=== PATIENT | female | born 1955 | race Caucasian/White ===

== ENCOUNTER → 2024-10-30 | Outpatient (CLI) | payer MEDICARE, OTHER ==
[2024-10-30 13:14] LABS: INR 0.9 (<1.2); Partial Thromboplastin Time 27.2 sec (22.0-30.0); Prothrombin Time 10.4 sec (10.0-12.5)
[2024-10-30 15:55] LABS: HCT 42.5 % (37.2-46.3); HGB 13.4 g/dL (12.0-15.0); Immature Platelet Fraction 19.2 % (1.1-6.1); MCHC 31.5 g/dL (32.0-37.0); NRBC Per 100 WBC 0 X 10*3/uL (0.00-0.01); Platelet Count 180 X 10*3/uL (140-440); RBC 4.62 X 10*6/uL (4.10-5.20); RBC Morphology Normal (Normal); RDW 13.8 % (11.5-14.5); WBC 14.13 X 10*3/uL (4.50-10.00)
[2024-10-30 19:10] LABS: ALT 14 U/L (8-44); AST 17 U/L (13-35); Albumin 4.1 g/dL (3.8-4.9); Albumin/Globulin Ratio 1.41 Ratio (1.60-3.17); Alkaline Phosphatase 81 U/L (41-126); BUN/Creat Ratio 18.82 Ratio (12.00-20.00); Blood Urea Nitrogen 20.7 mg/dL (9.0-27.0); Calcium 9.7 mg/dL (8.7-10.3); Carbon Dioxide 26.3 mmol/L (21.6-31.8); Chloride 105 mmol/L (96-109); Globulin 2.9 g/dL (1.6-3.3); Glucose 96 mg/dL (70-110); Potassium 4.9 mmol/L (3.5-5.5); Sodium 143 mmol/L (135-145); Total Bilirubin 0.5 mg/dL (0.3-1.2)
== END | disposition home or self-care (01) ==
LOC: LABPAT 11:43
PROVIDERS: ATTEND Orthopaedic Surgery
DX: Z01.818 Encounter for other preprocedural examination (principal); Z22.322 Carrier or suspected carrier of Methicillin resistant Staphylococcus aureus; M19.011 Primary osteoarthritis, right shoulder
CPT/HCPCS: 80053; 85027; 85610; 85730; 87070; 93005

== ENCOUNTER 2024-11-24 06:04 | Day surgery (SDC) | payer MEDICARE, OTHER ==
[2024-11-20 12:07] VITALS: BMI 44.9
[~2024-11-24 06:04] MED LIST: TRANEXAMIC 1,000 MG/100ML-NACL 1,000 MG in SALINE 1 100ML.BAG IVPB PRN
[2024-11-24 07:54] LABS: Glucose,Whole Blood 85 mg/dL (70-110)
[2024-11-24] MEDS: LACTATED RINGERS 1,000 ML IV SCH (07:58)
[2024-11-24] MEDS: IV FLUID CONTINUATION 1,000 ML IV ONE ×2 (07:58→11:19)
[2024-11-24] MEDS: GABAPENTIN 300 MG CAP PO PRN (08:02)
[2024-11-24] MEDS: MELOXICAM 7.5 MG TAB PO PRN (08:02)
[2024-11-24] MEDS: ACETAMINOPHEN TAB 500 MG TAB PO PRN (08:02)
[2024-11-24] MEDS: MIDAZOLAM 2 MG/2 ML VIAL IV PRN (08:04)
[2024-11-24] MEDS: DEXAMETHASONE SOD PHOSPHATE 4 MG/ML 1 ML VIAL IV ONE (08:06)
[2024-11-24] MEDS: ONDANSETRON 4 MG/2 ML VIAL IVP ONE (08:06)
[2024-11-24] MEDS: fentaNYL (PF) 50 MCG/ML 2 ML AMP IV PRN (08:14)
--- NOTE | 2024-11-24 08:19 | P.ANPRN ---
Procedure Note - Anesthesia - Nerve Block Performed Right Interscalene Single Time Out Performed: Yes Date of Procedure: 11/24/24 Procedure Start Time: : Procedure Stop Time: : Location of Patient: PreOp Indication: Acute Post-Operative Pain, Analgesia, Requested by Surgeon Sedation Type: Sedate with meaningful contact maintained Preparation: Sterile Prep Position: Sitting Catheter: None Needle Types: Pajunk Needle Gauge: 21 Ultrasound used to visualize needle placement: Yes Ultrasound used to observe medication spread: Yes Injectate: 0.5% Ropivacaine (see comment for volume) ([id number]. Negative stimulation @0.5MA) Blood Aspirated: No Pain Paresthesia on Injection Noted: No Resistance on Injection: Normal Image Stored and Saved: Yes Events: Uneventful and Well Tolerated
[2024-11-24] MEDS ORDERED: HYDROcodone/APAP 5-325MG 1 EACH TAB PO PRN ×2 (08:50)
[2024-11-24] MEDS ORDERED: SENNOSIDES-DOCUSATE SODIUM 1 EACH TAB PO PRN (08:50)
[2024-11-24] MEDS ORDERED: HYDROmorphone 0.5 MG/0.5 ML SYRINGE IVP PRN ×3 (08:50)
[2024-11-24] MEDS ORDERED: PHENYLEPHRINE-0.9% NACL SYG 1,000 MCG/10 ML SYRINGE ONE (09:02)
[2024-11-24] MEDS ORDERED: DEXAMETHASONE SOD PHOSPHATE 4 MG/ML 1 ML VIAL ONE (09:02)
[2024-11-24] MEDS ORDERED: LIDOCAINE 1% INJ 10MG/ML (20 ML MDV) ONE (09:02)
[2024-11-24] MEDS ORDERED: PROPOFOL 10 MG/ML 20 ML VIAL IV ONE (09:02)
[2024-11-24] MEDS ORDERED: SUCCINYLCHOLINE CHLORIDE 200 MG/10 ML VIAL IV ONE (09:02)
[2024-11-24] MEDS ORDERED: TRANEXAMIC 1,000 MG/100ML-NACL PREMIX BAG ONE (09:02)
[2024-11-24] MEDS ORDERED: PHENYLEPHRINE 10 MG/ML VIAL ONE (09:02)
[2024-11-24] MEDS ORDERED: fentaNYL (PF) 50 MCG/ML 2 ML AMP ONE (09:02)
[2024-11-24] MEDS ORDERED: ROPIVACAINE 5 MG/ML 30 ML VIAL ONE (09:02)
[2024-11-24] MEDS: ceFAZolin 2 GM in DEXTROSE 5% IN WATER 50 ML IVPB PRN (09:07)
[2024-11-24] MEDS: ceFAZolin 1,000 MG in SODIUM CHLORIDE 0.9% 1,000 ML IRRIGATION ONE (09:36)
--- NOTE | 2024-11-24 10:13 | P.OP ---
Date of Procedure: 11/24/24 Preoperative Diagnosis: Glenohumeral osteoarthritis right shoulder Postoperative Diagnosis: Glenohumeral osteoarthritis right shoulder Procedure(s) Performed: Right shoulder hemiarthroplasty Implants: Biomet May Stemless Shoulder 36 mm Biomet Standard Taper Adapter Biomet Modular Head - Variable Offset 46 mm, 21 mm, 50 mm Anesthesia: KAREN Surgeon: Farhad Lawrence Product Development Coordinator #1: Josselyn Sanz Estimated Blood Loss (ml): 30 Pathology: none sent Condition: stable Disposition: PACU Indications for Procedure: This is a patient that presented to my office with severe pain in the shoulder. X-rays demonstrated severe osteoarthritis of the glenohumeral joint of her shoulder. After failure of conservative treatment, we discussed the surgical and nonsurgical treatment options at length. The patient wishes to proceed with a hemiarthroplasty of the right shoulder. Patient is aware of the complications of the procedure which include but are not limited to infection, hardware failure, persistent pain, dislocation, and nerve injury. Informed consent was obtained. Operative Findings: The operative findings are consistent with severe osteoarthritis of the right glenohumeral joint Description of Procedure: The patient was seen in the preoperative area, consent was reviewed, and operative site was marked with a skin marker. Patient was then brought to the operating room and given preoperative antibiotics intravenously. Patient was also given 1 g of Tranexamic acid intravenously. A general anesthetic was administered by the anesthesia department. A Morrissey catheter was placed by the nursing staff. The patient was then placed in a beachchair position with the bony prominences well-padded and the head secured. The shoulder was then prepped and draped in the usual sterile fashion. A universal timeout was then performed, which confirmed the patient's name, surgical site, ALLERGIES, and consent. A standard deltopectoral approach was performed. The skin and subcutaneous tissue was sharply dissected down to the deltoid fascia. The cephalic vein was then identified and retracted medially. The deltopectoral interval was then utilized to expose the subscapularis tendon. A retractor was then placed under the coracobrachialis tendon retracted medially, and the deltoid. The axillary nerve is palpated and protected throughout the procedure. The subscapularis tendon was then released and retracted medially. The humeral head was then exposed easily. After the humeral head was exposed, osteophytes were removed with a Ronguer. Next the humerus was prepared. the drill guide was placed over the humeral head and a guidewire was inserted centrally humeral head. Next, using a saw, the proximal humerus was osteotomized. Next, the appropriate drill and reamer was used to prepare the proximal humerus. After full preparation of the proximal humerus, the implant was impacted in the shoulder was then reduced. The shoulder was taken through range of motion and found to be stable. Shoulder was then irrigated with pulsatile lavage. The shoulder was then irrigated with Irrisept solution. A second dose of 1 g of Tranexamic acid was given. The subscapularis was then repaired with #1 Vicryl. The deltopectoral interval was then closed with #1 Vicryl as well. The subcutaneous tissues were closed with 3-0 Vicryl followed by 3-0 Monocryl. Exofin glue was placed on the skin. A sterile dressing was then applied, the patient was transported to the recovery room in an arm sling in stable condition. The certified ophthalmic surgical assistant YADIRA Pineda was required due the complexity of surgery and the need for a skilled director medical surgical.
--- NOTE | 2024-11-24 10:56 | XR ---
EXAMINATION TYPE: XR shoulder limited RT DATE OF EXAM: 11/24/2024 10:51 AM COMPARISON: None. CLINICAL INDICATION: Female, 69 years old with history of postop, pain TECHNIQUE: AP view(s) obtained. FINDINGS: There is placement of a prosthetic humeral head. This articulates with the glenoid. Acromioclavicular joint degenerative hypertrophy. No acute fractures are evident. IMPRESSION: 1. No acute fracture post humeral head prosthesis placement. [facility], , 11/24/2024 10:53 AM
[2024-11-24] MEDS: IPRATROPIUM-ALBUTEROL 3 ML NEB INHALATION PRN (11:02)
[2024-11-24] MEDS: SODIUM CHLORIDE 0.9% 1,000 ML IV SCH (11:20)
[2024-11-24] MEDS: ONDANSETRON 4 MG/2 ML VIAL IVP PRN (12:04)
--- NOTE | 2024-11-24 15:39 | P.CONS ---
History of Present Illness - Reason for Consult Consult date: 11/24/24 - History of Present Illness Patient is a 69-year-old female with past medical history of CKD 3 A glenohumeral osteoarthritis of the right shoulder who presented for elective right shoulder hemiarthroplasty that was performed on with EBL of 30 cc, tolerated procedure well with no immediate postop complications. Hospitalist service consulted for medical management. Vital signs postoperatively showed normal body temperature, heart rate in the 80s, BP normotensive 115/72, satting at 94% on 2 L nasal cannula. Pertinent positives and negatives as discussed in HPI, a complete review of systems was performed and all other systems are negative. Lab work from 10/30 reviewed showed leukocytosis 13.3, normal hemoglobin and platelet count, unremarkable coagulation panel, GFR 54, normal sodium, potassium, bicarb, creatinine Patient seen and examined at bedside. No pain, ambulated after surgery, states the plan is to d/c 11/25 Vital signs reviewed General: nontoxic, no distress, appears at stated age Derm: warm, dry Head: atraumatic, normocephalic, symmetric Eyes: EOMI, no lid lag, anicteric sclera, pupils equal round reactive to light ENT: Nose and ears atraumatic Neck: No thyromegaly, supple Mouth: no lip lesion, mucus membranes moist Cardiovascular: S1S2 reg, no murmur, no edema Lungs: clear to auscultation bilateral, no rhonchi, no rales, no wheeze, no accessory muscle use Abdominal: soft, nontender to palpation, no guarding, no appreciable organomegaly Ext: no gross muscle atrophy, right shoulder postop dressing clean and dry Neuro: CN II-XII grossly intact Psych: Alert, oriented, appropriate affect Assessment/Plan: CKD 3 A -BMP ordered for a.m. -Agree with IV fluids with normal saline 70 cc/h -patient was notified on her CKD, she was not aware of it, she will follow up with her PCP,, recommended to avoid NSAIDs Morbid Obesity BMI 48 -recommend structured weight loss program, discuss with PCP Status post right shoulder hemiarthroplasty -Your postop management, VTE prophylaxis, pain management Past Medical History Additional Past Medical History / Comment(s): BACK PAIN. LIMITED RT ARM MOVEMENT History of Any Multi-Drug Resistant Organisms: None Reported Past Surgical History: Appendectomy, Section, Cholecystectomy, Hysterectomy, Orthopedic Surgery, Tonsillectomy Additional Past Surgical History / Comment(s): C-SEC X 4. BILAT CTR. RT INDEX FINGER SX. PLASTIC SX ON NOSE Past Anesthesia/Blood Transfusion Reactions: No Reported Reaction Smoking Status: Former smoker - Past Family History Mother Family Medical History: No Reported History Medications and Allergies Home Medications Medication Instructions Recorded Confirmed Type HYDROcodone/APAP 5-325MG [[place] 1 - 2 tab PO Q6HR PRN #32 tab 11/24/24 Rx 5-325] Sennosides [Senokot] 2 tab PO DAILY PRN #60 tablet 11/24/24 Rx Allergies Allergy/AdvReac Type Severity Reaction Status Date / Time bee venom protein (honey bee) Allergy Rash/Hives Verified 11/24/24 07:44 Milk Containing Products AdvReac Nausea & Verified 11/24/24 07:44 (Dairy) Vomiting [Dairy] morphine AdvReac Rash/Hives Verified 11/24/24 07:44 METAL Allergy Rash/Hives Uncoded 11/24/24 07:44 Physical Exam Vitals: Vital Signs Temp Pulse Pulse Resp BP BP Pulse Ox 11/24/24 14:00 82 16 118/63 94 L 11/24/24 13:30 86 16 115/72 94 L 11/24/24 13:00 87 16 111/73 95 11/24/24 12:30 89 16 123/62 93 L 11/24/24 12:05 94 16 142/84 93 L 11/24/24 11:50 86 16 141/67 94 L 11/24/24 11:25 81 18 145/72 94 L 11/24/24 11:03 80 18 137/68 92 L 11/24/24 10:48 84 16 159/79 91 L 11/24/24 10:33 97.2 F L 88 14 164/78 95 11/24/24 08:18 72 15 136/69 93 L 11/24/24 07:37 97.7 F 82 18 160/65 95 Intake and Output 11/23/24 11/24/24 11/24/24 22:59 06:59 14:59 Intake Total 1526 Output Total 30 Balance 1496 Intake: IV 1526 Output: Estimated Blood Loss 30 Other: Weight 111.7 kg
[2024-11-24] MEDS: ceFAZolin 2 GM in DEXTROSE 5% IN WATER 50 ML IVPB SCH (17:37)
[2024-11-24 19:33] VITALS: RESP 17
[2024-11-25] MEDS: ceFAZolin 2 GM in DEXTROSE 5% IN WATER 50 ML IVPB SCH (07:53)
[2024-11-25 08:29] VITALS: BP 172/74; PULSE 69; TEMP 97.8
[2024-11-25 08:53] LABS: Blood Urea Nitrogen 17.1 mg/dL (9.0-27.0); Calcium 8.6 mg/dL (8.7-10.3); Carbon Dioxide 22.9 mmol/L (21.6-31.8); Chloride 108 mmol/L (96-109); Glucose 107 mg/dL (70-110); Potassium 4.9 mmol/L (3.5-5.5); Sodium 142 mmol/L (135-145)
--- NOTE | 2024-11-25 09:25 | P.DS ---
Providers Expected date of discharge: 11/25/24 Attending physician: Farhad Lawrence Consults: 11/24/24 08:50 Consult Physician Routine Consulting Provider: Elliot Arvizu Consult Reason/Comments: medical management Do you want consulting provider notified?: Yes Primary care physician: Catarina Cardona - Discharge Diagnosis(es) (1) S/P shoulder hemiarthroplasty Current Visit: Yes Status: Acute (2) Osteoarthritis of right shoulder Current Visit: Yes Status: Acute Hospital Course: This is a 69-year-old female with known history of degenerative arthritis of the right shoulder. The patient presented for evaluation as an outpatient. After discussion and consideration patient elects to proceed with right shoulder hemiarthroplasty. The patient is seen preoperatively by Dr. Lawrence and medically cleared for surgery by their primary care physician. Patient is admitted to [facility] on 11/24/2024 for right shoulder hemiarthroplasty. The procedure is performed without complication or sequelae. The patient is doing well postoperatively. Labs and vital signs are stable on day of discharge. On day of discharge the patient's shoulder incision is healing well. There is minimal erythema. There is no drainage noted at this time. There is minimal soft tissue swelling to the shoulder. Patient has full hand and wrist motion without difficulty or pain. Neurovascular status to the right upper extremity is intact. Patient is discharged home in good condition. Please see med rec for accurate list of home medications. Plan - Discharge Summary Discharge Rx Participant: Yes New Discharge Prescriptions: New Sennosides [Senokot] 2 tab PO DAILY PRN #60 tablet PRN Reason: Constipation HYDROcodone/APAP 5-325MG [[place] 5-325] 1 - 2 tab PO Q6HR PRN #32 tab PRN Reason: Pain Discharge Medication List HYDROcodone/APAP 5-325MG [[place] 5-325] 1 - 2 tab PO Q6HR PRN #32 tab 11/24/24 [Rx] Sennosides [Senokot] 2 tab PO DAILY PRN #60 tablet 11/24/24 [Rx] Follow up Appointment(s)/Referral(s): Farhad Lawrence DO [Doctor of Osteopathic Medicine] - 2 Weeks Activity/Diet/Wound Care/Special Instructions: Maintain sling for comfort. Dressing may be removed by home care nurse or by patient in 7 days. Then change dressing twice daily until follow up. May shower with initial dressing intact and after removal. If dressing become saturated, please remove. Please follow-up with [facility] and call with any questions or concerns, . Discharge Disposition: HOME SELF-CARE
--- NOTE | 2024-11-25 10:59 | P.PN ---
Subjective Progress Note Date: 11/25/24 Patient is a 69-year-old female with past medical history of CKD 3 A glenohumeral osteoarthritis of the right shoulder who presented for elective right shoulder hemiarthroplasty that was performed on with EBL of 30 cc, tolerated procedure well with no immediate postop complications. Hospitalist service consulted for medical management. Patient seen and examined at bedside. No pain, ready for discharge, medically cleared on 11/25 Vital signs reviewed General: nontoxic, no distress, appears at stated age Derm: warm, dry Head: atraumatic, normocephalic, symmetric Eyes: EOMI, no lid lag, anicteric sclera, pupils equal round reactive to light ENT: Nose and ears atraumatic Neck: No thyromegaly, supple Mouth: no lip lesion, mucus membranes moist Cardiovascular: S1S2 reg, no murmur, no edema Lungs: clear to auscultation bilateral, no rhonchi, no rales, no wheeze, no accessory muscle use Abdominal: soft, nontender to palpation, no guarding, no appreciable organomegaly Ext: no gross muscle atrophy, right shoulder postop dressing clean and dry Neuro: CN II-XII grossly intact Psych: Alert, oriented, appropriate affect Assessment/Plan: CKD 3 A Creatinine 1.0, GFR 61 -patient was notified on her CKD, she was not aware of it, she will follow up with her PCP,, recommended to avoid NSAIDs -Stable kidney function, stable for discharge from medical standpoint, follow-up with PCP Morbid Obesity BMI 48 -recommend structured weight loss program, discuss with PCP Status post right shoulder hemiarthroplasty -Your postop management, VTE prophylaxis, pain management Objective - Vital Signs Vital signs: Vital Signs Temp 97.8 F 11/25/24 07:17 Pulse 69 11/25/24 07:17 Resp 17 11/25/24 07:17 BP 172/74 11/25/24 07:17 Pulse Ox 95 11/25/24 08:51 FiO2 Intake & Output 11/24/24 11/25/24 11/25/24 18:59 06:59 18:59 Intake Total 1526 Output Total 30 Balance 1496 Weight 111.7 kg Intake: IV 1526 Output: Estimated Blood Loss 30 Other: Voiding Method Toilet # Voids 2 3 - Labs CBC & Chem 7: 11/25/24 03:30 Labs: Abnormal Lab Results - Last 24 Hours (Table) 11/25/24 Range/Units 03:30 Calcium 8.6 L (8.7-10.3) mg/dL
[2024-11-25] MEDS ORDERED: Acetaminophen-Codeine 300-30mg TAB PO PRN ×2 (11:07)
== END 2024-11-25 14:36 | disposition home or self-care (01) ==
LOC: OR 06:04 → 4SSUR 10:27 → OR 11-25 14:36
PROVIDERS: ATTEND Orthopaedic Surgery
DX: M19.011 Primary osteoarthritis, right shoulder (principal); N18.31 Chronic kidney disease, stage 3a; E66.01 Morbid (severe) obesity due to excess calories; Z68.42 Body mass index [BMI] 45.0-49.9, adult; Z90.710 Acquired absence of both cervix and uterus; Z90.49 Acquired absence of other specified parts of digestive tract; Z01.818 Encounter for other preprocedural examination; Z87.891 Personal history of nicotine dependence; Z91.030 Bee allergy status; Z88.5 Allergy status to narcotic agent; Z79.899 Other long term (current) drug therapy
CPT/HCPCS: 94760; 64415; 80048; 73020; 23412; C1776; J2250; J1100; J0690 ×3; J2405; J3010

== ENCOUNTER 2025-01-29 11:57 | Emergency (ER) | payer MEDICARE, OTHER ==
--- NOTE | 2025-01-29 12:39 | ED ---
SOB HPI - General Source: patient, EMS, RN notes reviewed, old records reviewed Mode of arrival: EMS Limitations: no limitations <Krista Obrien - Last Filed: 01/29/25 15:25> <Haroon Morales - Last Filed: 01/29/25 21:39> - General Stated Complaint: SOB - History of Present Illness Initial Comments: 69-year-old female presents with complaints of shortness of breath and wheezing for the last day. States yesterday in the afternoon she left her windows open and they were mowing the grass outside and she started to get short of breath and have some wheezing. Reports she checked take a Benadryl but this did not help her symptoms, she thought that this was potentially her allergies. 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 States the symptoms of shortness of breath and wheezing continued throughout the night into today and she decided to call her granddaughter who suggested that she go to the emergency room for further evaluation, patient called 911 and was brought to the ED by EMS. (Krista Obrien) - Related Data Previous Rx's Medication Instructions Recorded Sennosides [Senokot] 2 tab PO DAILY PRN #60 tablet 11/24/24 Acetaminophen-Codeine 300-30mg 1 tab PO Q4-6H PRN #30 tablet 11/25/24 [Tylenol #3] Albuterol Inhaler [Ventolin Hfa 1 - 2 puff INHALATION Q6H PRN #1 01/29/25 Inhaler] each predniSONE [Deltasone] 20 mg PO BID #10 tab 01/29/25 Allergies Allergy/AdvReac Type Severity Reaction Status Date / Time bee venom protein (honey bee) Allergy Rash/Hives Verified 01/29/25 12:07 Milk Containing Products AdvReac Nausea & Verified 01/29/25 12:07 (Dairy) Vomiting [Dairy] morphine AdvReac Rash/Hives Verified 01/29/25 12:07 METAL Allergy Rash/Hives Uncoded 01/29/25 12:07 Review of Systems ROS Other: All systems not noted in ROS Statement are negative. <Krista Obrien - Last Filed: 01/29/25 15:25> ROS Other: All systems not noted in ROS Statement are negative. <Haroon Morales - Last Filed: 01/29/25 21:39> ROS Statement: Those systems with pertinent positive or pertinent negative responses have been documented in the HPI. Past Medical History Additional Past Medical History / Comment(s): seasonal allergies History of Any Multi-Drug Resistant Organisms: None Reported Past Surgical History: Appendectomy, Section, Cholecystectomy, Hys terectomy, Joint Replacement, Orthopedic Surgery Additional Past Surgical History / Comment(s): carpal tunnel bilateral hands, plastic surgery in nose Past Psychological History: No Psychological Hx Reported Smoking Status: Former smoker Past Alcohol Use History: None Reported Past Drug Use History: None Reported <Krista Obrien - Last Filed: 01/29/25 15:25> General Exam Limitations: no limitations <Krista Obrien - Last Filed: 01/29/25 15:25> - General Exam Comments Initial Comments: GENERAL: In mild distress at the time of examination. Pleasant and cooperative. HEENT: Head is atraumatic, normocephalic. Pupils are equal, round, and reactive to light. Sclerae anicteric. Conjunctivae are clear. Mucus membranes of the mouth are moist. Neck is supple. RESPIRATORY: Wheezing auscultated throughout bilateral lungs, no use of accessory muscles. Patient maintaining oxygen saturation greater than 92%. No chest wall tenderness is noted on palpation or with deep breathing. CARDIOVASCULAR: Regular rate and rhythm. S1 and S2 noted. No systolic or diastolic murmur auscultated. No JVD noted. No S3 or S4 noted. GASTROINTESTINAL: No distention noted. Abdomen soft and round. Normal active bowel sounds auscultated x 4 quadrants. No pain or tenderness noted upon palpation. INTEGUMENTARY: No cyanosis. No jaundice. No rashes noted. No cellulitis noted. EXTREMITIES: 2+ peripheral pulses. No evidence of peripheral edema. No calf tenderness noted. PSYCHIATRIC: Awake, alert, and oriented X 3. Appropriate affect. Intact judgement and insight. (Krista Obrien) Course <Krista Obrien - Last Filed: 01/29/25 15:25> Vital Signs 01/29/25 01/29/25 01/29/25 12:00 12:47 12:58 Temperature Pulse Rate 89 85 81 Respiratory 30 H Rate Blood Pressure 147/67 O2 Sat by Pulse 97 Oximetry 01/29/25 01/29/25 01/29/25 13:06 14:33 15:32 Temperature 98.5 F 98.4 F Pulse Rate 86 86 Respiratory 22 22 20 Rate Blood Pressure 129/67 131/67 O2 Sat by Pulse 98 96 95 Oximetry - Reevaluation(s) Reevaluation #1: 01/29/25 15:08 Patient sitting up comfortably in bed, just walked to the bathroom without shortness of breath. States she is feeling very well after DuoNeb treatment. Patient has no new complaints at this time. Auscultation of the lungs bilaterally shows significantly decreased wheezing as compared to arrival. (Krista Obrien) Medical Decision Making - Lab Data Result diagrams: 01/29/25 12:42 01/29/25 12:42 <Krista Obrien - Last Filed: 01/29/25 15:25> - Lab Data Result diagrams: 01/29/25 12:42 01/29/25 12:42 <Haroon Morales - Last Filed: 01/29/25 21:39> - Medical Decision Making Was pt. sent in by a medical professional or institution (YADIRA Mckeon, ONCOLOGY ACCOUNT SPECIALIST, urgent care, hospital, or halfway...) When possible be specific @ -No Did you speak to anyone other than the patient for history (EMS, parent, family, police, friend...)? What history was obtained from this source @ -No Did you review nursing and triage notes (agree or disagree)? Why? @ -I reviewed and agree with nursing and triage notes Were old charts reviewed (outside hosp., previous admission, EMS record, old EKG, old radiological studies, urgent care reports/EKG's, halfway records)? Report findings @ -No old charts were reviewed Differential Diagnosis? @ -Differential Dyspnea: Coronary syndrome, arrhythmia, tamponade, asthma, COPD, pulmonary embolism, pneu monia, pneumothorax, pulmonary effusion, anaphylaxis, diabetic ketoacidosis, flailed chest, pulmonary contusion, diaphragmatic rupture, anemia, neuromuscular, this is not meant to be an all-inclusive list. EKG interpreted by me (3pts min.). @ -Normal sinus rhythm, some left axis deviation. X-rays interpreted by me (1pt min.). @ -Chest x-ray showed no acute cardiopulmonary process CT interpreted by me (1pt min.). @ -None done U/S interpreted by me (1pt. min.). @ -None done What testing was considered but not performed or refused? (CT, X-rays, U/S, labs)? Why? @ -None What meds were considered but not given or refused? Why? @ -None Did you discuss the management of the patient with other professionals (professionals i.e. DrCandida, PA, ONCOLOGY ACCOUNT SPECIALIST, lab, RT, psych nurse, manager social media, wet mix operator, teacher, chief diversity officer, case management coordinator)? Give summary @ -No Was smoking cessation discussed for >3mins.? @ -No Was critical care preformed (if so, how long)? @ -No Were there social determinants of health that impacted care today? How? (Homelessness, low income, unemployed, alcoholism, drug addiction, transport ation, low edu. Level, literacy, decrease access to med. care, assisted, rehab)? @ -No Was there de-escalation of care discussed even if they declined (Discuss DNR or withdrawal of care, Hospice)? DNR status @ -No What co-morbidities impacted this encounter? (DM, HTN, Smoking, COPD, CAD, Cancer, CVA, ARF, Chemo, Hep., AIDS, mental health diagnosis, sleep apnea, morbid obesity)? @ -None Was patient admitted / discharged? Hospital course, mention meds given and route, prescriptions, significant lab abnormalities, going to OR and other pertinent info. @ -Discharge, 69-year-old female presenting with a couple days of shortness of breath and wheezing. Call 911 in the ambulance on the way to the hospital patient received prednisone and DuoNebs which helped her breathing significantly. Upon arrival and initial examination she was wheezy throughout all lung romero, received additional breathing treatment here. Sometime after receiving second breathing treatment patient was reevaluated wheezing had significantly decreased almost unnoticeable, patient was able to walk around and be off any oxygen without any issues. For discharge with follow-up with the PCP in 1 to 2 days. Undiagnosed new problem with uncertain prognosis? @ -No Drug Therapy requiring intensive monitoring for toxicity (Heparin, Nitro, Insulin, Cardizem)? @ -No Were any procedures done? @ -No Diagnosis/symptom? @ -Asthma exacerbation Acute, or Chronic, or Acute on Chronic? @ -Acute on chronic Uncomplicated (without systemic symptoms) or Complicated (systemic symptoms)? @ -Default Side effects of treatment? @ -No Exacerbation, Progression, or Severe Exacerbation? @ -No Poses a threat to life or bodily function? How? (Chest pain, [place], [place], pneumonia, PE, COPD, DKA, ARF, appy, cholecystitis, CVA, Diverticulitis, Homicidal, Suicidal, threat to staff... and all critical care pts) @ -No (Krista Obrien) I personally saw the patient and performed the critical portion of the service. I discussed the patient care with the resident. I directed management, care planning and final disposition of the patient. This includes, but not limited to, review of all lab work, radiological studies, EKG's, consultations, vital signs, and nursing notes. EKG interpreted by me (3pts min.) @As above X-Rays interpreted by me (1 pt min.) @Chest x-ray shows no acute abnormality CT interpreted by me ( 1pt min.) @None U/S interpreted by me (1 pt min.) @None Critical care time of 0 minutes excluding separately billable procedures was spent in conjunction with critical care activities provided by the Resident and Attending simultaneously. I was present during no procedures for all critical portions of the procedure and as immediately available to furnish service during the entire procedure. (Haroon Morales) - Lab Data Lab Results 01/29/25 01/29/25 Range/Units 12:42 12:42 WBC 9.25 (4.50-10.00) 10*3/uL RBC 4.52 (4.10-5.20) 10*6/uL Hgb 13.1 (12.0-15.0) g/dL Hct 39.1 (37.2-46.3) % MCV 86.5 (80.0-97.0) fL MCH 29.0 (27.0-32.0) pg MCHC 33.5 (32.0-37.0) g/dL Plt Count 153 (140-440) 10*3/uL MPV 13.1 H (9.5-12.2) fL Immature Gran % (Auto) 0.4 % Neutrophils % 58.6 % Lymphocytes % 24.9 % Monocytes % 12.9 % Eosinophils % 2.8 % Basophils % 0.4 % Immature Gran # 0.04 (0.00-0.04) 10*3/uL Neutrophils # 5.42 (1.80-7.70) 10*3/uL Lymphocytes # 2.30 (0.90-5.00) 10*3/uL Monocytes # 1.19 H (0.20-1.00) 10*3/uL Eosinophils # 0.26 (0.04-0.35) 10*3/uL Basophils # 0.04 (0.00-0.10) 10*3/uL Manual Slide Review Performed Sodium 140 (137-145) mmol/L Potassium 4.0 (3.5-5.1) mmol/L Chloride 102 (98-107) mmol/L Carbon Dioxide 29 (22-30) mmol/L Anion Gap 9 mmol/L BUN 16 (7-17) mg/dL Creatinine 0.88 (0.52-1.04) mg/dL Est GFR (CKD-EPI)AfAm 78 (>60 ml/min/1.73 sqM) Est GFR (CKD-EPI)NonAf 67 (>60 ml/min/1.73 sqM) Glucose 142 H (74-99) mg/dL Calcium 8.6 (8.4-10.2) mg/dL Total Bilirubin 0.9 (0.2-1.3) mg/dL AST 21 (14-36) U/L ALT 14 (4-34) U/L Alkaline Phosphatase 64 (38-126) U/L Total Protein 6.9 (6.3-8.2) g/dL Albumin 3.9 (3.5-5.0) g/dL Disposition Is patient prescribed a controlled substance at d/c from ED?: No <Krista Obrien - Last Filed: 01/29/25 15:25> <Haroon Morales - Last Filed: 01/29/25 21:39> Clinical Impression: Asthma with acute exacerbation Disposition: HOME SELF-CARE Instructions (If sedation given, give patient instructions): Asthma (ED) Prescriptions: predniSONE [Deltasone] 20 mg PO BID #10 tab Albuterol Inhaler [Ventolin Hfa Inhaler] 1 - 2 puff INHALATION Q6H PRN #1 each PRN Reason: Shortness Of Breath Or Wheezing Referrals: Catarina Cardona MD [Primary Care Provider] - 1-2 days
[2025-01-29] MEDS: IPRATROPIUM-ALBUTEROL 3 ML NEB INHALATION STA (12:47)
[2025-01-29 13:01] LABS: Basophils # (A) 0.04 10*3/uL (0.00-0.10); Basophils % (A) 0.4 %; Eosinophils # (A) 0.26 10*3/uL (0.04-0.35); Eosinophils % (A) 2.8 %; HCT 39.1 % (37.2-46.3); HGB 13.1 g/dL (12.0-15.0); Lymphocytes % (A) 24.9 %; MCHC 33.5 g/dL (32.0-37.0); MCV 86.5 fL (80.0-97.0); Mean Platelet Volume 13.1 fL (9.5-12.2); Monocytes # (A) 1.19 10*3/uL (0.20-1.00); Monocytes % (A) 12.9 %; Neutrophils # (A) 5.42 10*3/uL (1.80-7.70); Neutrophils % (A) 58.6 %; RBC 4.52 10*6/uL (4.10-5.20); RDW 13.9 % (11.5-14.5); WBC 9.25 10*3/uL (4.50-10.00)
[2025-01-29 13:08] LABS: ALT 14 U/L (4-34); African American GFR (CKD) 78 (>60 ml/min/1.73 sqM); Albumin 3.9 g/dL (3.5-5.0); Anion Gap 9 mmol/L; Blood Urea Nitrogen 16 mg/dL (7-17); Calcium 8.6 mg/dL (8.4-10.2); Carbon Dioxide 29 mmol/L (22-30); Chloride 102 mmol/L (98-107); Glucose 142 mg/dL (74-99); Non-African American GFR(CKD) 67 (>60 ml/min/1.73 sqM); Sodium 140 mmol/L (137-145); Total Bilirubin 0.9 mg/dL (0.2-1.3); Total Protein 6.9 g/dL (6.3-8.2)
[2025-01-29 13:09] VITALS: PULSE 86
[2025-01-29 13:11] LABS: AST 21 U/L (14-36); Alkaline Phosphatase 64 U/L (38-126)
[2025-01-29 13:37] LABS: Platelet Count 153 10*3/uL (140-440)
--- NOTE | 2025-01-29 13:51 | XR ---
EXAMINATION TYPE: XR chest 2V DATE OF EXAM: 01/29/2025 1:09 PM COMPARISON: None. CLINICAL INDICATION: Female, 69 years old with history of difficulty breathing, TECHNIQUE: XR chest 2V view(s) obtained. FINDINGS: The heart size is normal. The pulmonary vasculature is normal. The lungs are clear. IMPRESSION: 1. No acute pulmonary process. [facility], , 01/29/2025 1:49 PM
[2025-01-29 15:34] VITALS: BP 131/67; RESP 20; TEMP 98.4
== END 2025-01-29 15:34 | disposition home or self-care (01) ==
LOC: EC 11:57
DX: J45.901 Unspecified asthma with (acute) exacerbation (principal); Z11.52 Encounter for screening for COVID-19; Z87.891 Personal history of nicotine dependence; Z88.5 Allergy status to narcotic agent; Z91.011 Allergy to milk products; Z91.030 Bee allergy status; Z88.8 Allergy status to other drugs, medicaments and biological substances
CPT/HCPCS: 36415; 71046; 80053; 85025; 93005; 94640; 99285